=== PATIENT | female | born 1940 | race Caucasian/White ===

== ENCOUNTER → 2023-04-18 | Outpatient (CLI) | payer MEDICARE | END | disposition home or self-care (01) | LOC: RADPV 09:34 | PROVIDERS: ATTEND Internal Medicine | DX: R06.00 Dyspnea, unspecified (principal); I10 Essential (primary) hypertension; I83.813 Varicose veins of bilateral lower extremities with pain; R09.3 Abnormal sputum | CPT/HCPCS: 93880; 93970 ==